=== PATIENT | female | born 1935 | race African-American/Black ===

== ENCOUNTER 2019-05-01 00:07 | Inpatient (IN) | payer OTHER ==
[~2019-05-01] VITALS: Ht 157.5 cm; Wt 108.9 kg
[2019-05-01] VITALS (7 sets, daily range): BP systolic 127–162; BP diastolic 57–76
--- NOTE | ~2019-05-01 | HC ---
[facility] [place] [address] CONSULTATION Name: ELÍAS SMITH Room #: 454-P ADM IN M.R.#: [id number] Admission: 05/01/19 ������������������ Attend Phys: Donn Tate MD Discharge: ������������������ Date of : 39 Report #: [id number] THIS REPORT FOR: //name// CC: Meme Tate DATE OF SERVICE: 05/04/2019 HISTORY OF PRESENT ILLNESS: The patient is an 84-year-old -Maldivian female admitted with increased shortness of breath for approximately 12 hours. Complains of cough. She was noted to have acute on chronic respiratory failure, thought to have probable COPD exacerbation. She does have history of diabetes mellitus type 2. She was diagnosed with community-acquired pneumonia. She does have morbid obesity. We are seeing her in rehabilitation medicine consultation. PAST MEDICAL HISTORY: Includes chronic low back pain, hypertension. She has had prior lumbar surgery, bilateral total knee replacements, diabetes mellitus type 2. MEDICATIONS: Please see the full medication listing. HABITS: Nonsmoker, but exposed to secondhand smoked for over 50 years in-home with . SOCIAL HISTORY: Lives in a house currently and she lives by herself, but her daughter will be staying with her for the short run. There are 2 steps in, she used cane. Apparently, this is a split level. REVIEW OF SYSTEMS: Did not offer any current complaints of chest pain, shortness of breath or abdominal discomfort. PHYSICAL EXAMINATION: GENERAL: An 84-year-old -Maldivian female in no obvious distress. VITAL SIGNS: Last recorded temperature 98, pulse 70, respirations 18, blood pressure 139/60. She is alert, oriented. HEENT: Appeared to be benign. Dentition is fair. NEUROLOGIC: Facies are symmetric. Follows basic commands without difficulty, functional range of motion of both upper extremities with strength grade 4+/5. DTRs are trace to 1. ABDOMEN: She does have evidence of obesity with a pendulous abdomen. EXTREMITIES: Lower extremities, no focal calf swelling, functional range of motion with strength grade 4+/5. She has done well with her transfers and is ambulated 100 feet, standby assistance with a cane. She has gone up 5 stairs standby assistance. ASSESSMENT: An 84-year-old -Maldivian female with the following problems: [address] [address] CONSULTATION Name: ELÍAS SMITH Room #: 454-P [facility] IN M.R.#: [id number] Admission: 05/01/19 ������������������ Attend Phys: Donn Tate MD Discharge: ������������������ Date of : 39 Report #: [id number] 1. Community-acquired pneumonia. 2. Generalized debilitation. She is doing better in this regard. 3. Diabetes mellitus type 2. 4. Hypertension. 5. Morbid obesity. 6. Chronic low back pain. 7. Acute asthma exacerbation. PLAN: The patient is doing quite well with basic transfers, functional mobility issues and going up and down stairs. Agree with physical therapy that she is ready for discharge back to the home setting. ��������������������������������������������� ���������������������������������������� By: ��������������������������������������������� 1116 1411 Dewayne Diaz MD /PMT
[2019-05-01] MEDS ORDERED: ASA81BEC PO (00:32)
[2019-05-01] MEDS ORDERED: SINGULAIR 10 MG10 M1 PO (00:33)
[2019-05-01] MEDS ORDERED: METFORMIN HCL500 MG PO (00:33)
[2019-05-01] MEDS ORDERED: HYDROCHLOROTH12.5 M1 PO (00:33)
[2019-05-01] MEDS ORDERED: CARDIZEM CD240 MG PO (00:34)
[2019-05-01] MEDS ORDERED: PRINIVIL10 MG PO (00:34)
[2019-05-01 02:15] LABS: ANION GAP 10 mmol/L (7-16); BUN 15 mg/dL (7-18); CALCIUM 8.9 mg/dL (8.5-10.1); CHLORIDE 104 mmol/L (98-107); CO2 22 mmol/L (21-32); GLUCOSE 122 mg/dL (74-106); POTASSIUM 4.1 mmol/L (3.5-5.1); SODIUM 136 mmol/L (136-145)
[2019-05-01 02:24] LABS: TROPONIN-I <0.06 ng/mL (<0.06)
[2019-05-01 02:38] LABS: ABSOLUTE NEUTROPHILS 3.5 thou/uL (1.4-8.2); BASOPHILS 0.6 % (0.0-2.0); EOSINOPHILS 5.1 % (0.0-3.0); HEMATOCRIT 34.9 % (37.0-47.0); HEMOGLOBIN 11.2 gm/dL (12.0-15.0); MCH 26.9 pg (26.0-34.0); MCHC 32.2 g/dL (28.0-37.0); MCV 83.7 fL (80.0-100.0); MONOCYTES 8.7 % (1.0-8.0); PLATELET COUNT 228 thou/uL (150-400); POLYS 66.6 % (36.0-66.0); RBC 4.17 mil/uL (4.20-5.00); RDW 14.8 % (10.5-14.5); WBC 5.3 thou/uL (4.0-11.0)
--- NOTE | 2019-05-01 07:31 | EKG ---
[address] [place] [address] ELECTROCARDIOGRAM REPORT Name: ELÍAS SMITH Room #: 454-P ADM IN M.R.#: [id number] ������������������ Admission: 05/01/19 ������������������ Attend Phys: Donn Tate MD Discharge: ������������������ Date of : 39 Report #: [id number] ����������������������������������������������������������������� [id number] THIS REPORT FOR: //name// [facility] ED Test Date: 2019-05-01 Test Time: 00:46:58 Pat Name: ELÍAS SMITH Department: Room: [facility] Gender: F Doughnut Icer: matthew kirby : 1935 Requested By: Reji Rollins Order Number: [id number] MD: Avinash Joshi Measurements Intervals [place] Rate: 79 P: 90 MD: 178 QRS: -25 QRSD: 84 T: 45 QT: 389 QTc: 447 Interpretive Statements Sinus rhythm Borderline left axis deviation No previous ECG available for comparison Electronically Signed On 05-01-2019 7:30:52 CDT by Avinash Joshi [email or web address] ��������������������������������������������� <ELECTRONICALLY SIGNED> ���������������������������������������� By: Avinash Joshi MD, [facility] ��������������������������������������������� 05/01/19 0730 0046 0046 Avinash Joshi MD, FACC /EPI
--- NOTE | 2019-05-01 07:37 | NUR ---
A/O, calm and pleasant; afebrile; nursing practioner visited the patient on arrival; patient asked for breathing treatment, RT notified.
[2019-05-01 11:21] LABS: FOLIC ACID 8.4 ng/mL (8.6-58.9)
--- NOTE | 2019-05-01 14:56 | NUR ---
ASSESSMENT: CM REVIEWED CHART AND MET WITH PATIENT AND HER DAUGHTER AT THE BEDSIDE. PT WAS ADMITTED WITH PNEUMONIA. PT CURRENTLY LIVES IN A HOUSE ALONE BUT STATES HER DAUGHTER IS IN FROM [place] AND WILL BE STAYING THERE UNTIL May. PT REPORTS SHE LIVES IN A SPLIT LEVEL HOME AND HAS TWO SETS OF 6 STEPS WITH HANDRAILS. PT REPORTS USING A CANE AT HOME AND ALSO HAS A ROLLATER WALKER. CM DISCUSSED ROLE. PT REPORTS SHE HAS BEEN TO [facility] IN THE PAST AND HAS HAD HH BUT UNSURE THE AGENCY. PT STATES SHE IS WISHING TO RETURN HOME WITH HH AT DISCHARGE. PT REPORTS NO PREFERENCE OF HH AGENCY. REFERRAL WAS SENT TO [facility]. CHOICE OF VENDOR FORM ON CHART. [facility]:[phone] FAX:[phone]
--- NOTE | 2019-05-01 15:49 | NUR ---
Received awake on bed. Due medications given as prescribed, able to swallow meds w/o difficulty. A+Ox4. On room air. With SL at Left chest- intact, infusing well. On blood sugar monitoring, taken and recorded accordingly; With insulin SS prescribed. Falls risk- falls bundle in place. Visited by relative. Able to pass urine in the toilet, on stand by assist. With consult to Dr Paulson- US called in, pt seen by ELECTRIC CUTTER OPERATOR, to continue Blood sugar monitoring. Vital signs stable.
[2019-05-02 03:09] VITALS: BP 139/54
--- NOTE | 2019-05-02 03:11 | NUR ---
ASSUMED CARE AROUND 1900. AXOX4. NO S/S ACUTE DISTRESS NOTED OR REPORTED AT THIS TIME. WILL CONT TO MONITOR FOR ANY CHANGES IN CONDITION.
[2019-05-02 08:10] VITALS: BP 154/52
[2019-05-02 15:15] VITALS: BP 138/47
[2019-05-02 18:22] VITALS: BP 129/41
--- NOTE | 2019-05-02 18:27 | NUR ---
PT A&OX4, VSS, DENIES PAIN. PATIENT HAS RESTED IN BED AND RECLINER THROUGHOUT DAY. MEDS GIVEN ORDERED, FAMILY AT BEDSIDE. WHEEZING HEARD ACROSS ALL LUNG LOBES, NON PRODUCTIVE COUGH PRESENT, PATIENT WAS UNABLE TO GIVE SPUTUM SAMPLE TODAY. PATIENT CONTINUES ON ROOM AIR, NO SIGNS OF DISTRESS. WILL CONTINUE TO MONITOR.
--- NOTE | 2019-05-03 02:46 | NUR ---
patient aox4 makes needs known. patient is a stand by assist with adl, bed mobility, transfer and toileting. patient had increased wheezing this shift. educated patient to sit up in bed or chair.patient feels better this shift sitting up in bed. patient ambulates with a cane with steady gaits. sputum collected and taken to the lab. patient in bed asleep at this time breathing regular and unlaboured.
[2019-05-03 03:59] VITALS: BP 124/45
[2019-05-03 06:05] LABS: HEMATOCRIT 32.6 % (37.0-47.0); HEMOGLOBIN 10.6 gm/dL (12.0-15.0); MCH 27.2 pg (26.0-34.0); MCHC 32.5 g/dL (28.0-37.0); MCV 83.5 fL (80.0-100.0); RBC 3.9 mil/uL (4.20-5.00); RDW 14.8 % (10.5-14.5); WBC 9.5 thou/uL (4.0-11.0)
[2019-05-03 06:16] LABS: CALCIUM 8.9 mg/dL (8.5-10.1); POTASSIUM 4.5 mmol/L (3.5-5.1)
[2019-05-03 08:00] VITALS: BP 145/60
--- NOTE | 2019-05-03 12:49 | NUR ---
TOWARDS POC PT A/O X4, VSS, AFEBRILE. DENIES PAIN. NO SOA, NO NV. NO CONCERNS VOICED. WILL CONTINUE TO MONITOR.
[2019-05-03 15:00] VITALS: BP 152/70
[2019-05-03 19:56] VITALS: BP 140/49
--- NOTE | 2019-05-03 22:44 | NUR ---
Assumed care at 1845. Pt AOX4. VSS. Gave night time insulin. Denies pain. Still has mild expiratory wheezing. Pt didnt want to be woken up for midnight vitals. No identified needs at the moment. Call light within reach. Will continue to monitor.
[2019-05-04 04:59] VITALS: BP 131/54
[2019-05-04 06:19] LABS: HEMATOCRIT 33.2 % (37.0-47.0); HEMOGLOBIN 10.8 gm/dL (12.0-15.0); MCH 26.7 pg (26.0-34.0); MCHC 32.5 g/dL (28.0-37.0); MCV 82.2 fL (80.0-100.0); RBC 4.04 mil/uL (4.20-5.00); RDW 14.8 % (10.5-14.5); WBC 8.3 thou/uL (4.0-11.0)
[2019-05-04 08:24] VITALS: BP 139/60
[2019-05-04 08:57] VITALS: BP 139/60
--- NOTE | 2019-05-04 13:28 | NUR ---
Assumed pt care this am, with no IV in place. Pt is able to ambulate using her cane and a gait belt with ease and a steady gait. Denies any pain. Faint wheezing has been noted but no signs of distress. Pt had lunch on her recliner is and tolerating her diet well. Seen by Dr. Tate, IV medication converted to oral, POC followed.
[2019-05-04] MEDS ORDERED: PREDNISONE 20 M20 M1 PO (13:51)
[2019-05-04] MEDS ORDERED: IPRAT-ALBUT 0.5-3 ML INH (13:51)
[2019-05-04] MEDS ORDERED: ADULT LOW DOSE81 MG PO (13:51)
[2019-05-04] MEDS ORDERED: ACETAMINOPHEN325 M1 PO (13:51)
[2019-05-04] MEDS ORDERED: PULMICORT0.25 MG/1 INH (13:51)
[2019-05-04] MEDS ORDERED: MUCINEX600 MG PO (13:51)
[2019-05-04] MEDS ORDERED: CEFUROXIME500 MG PO (13:51)
[2019-05-04] MEDS ORDERED: AZITHROMYCIN 2250 MG PO (13:51)
[2019-05-05 22:06] LABS: ADENOVIRUS Negative (Negative); INFLUENZA A Negative (Negative); INFLUENZA B Negative (Negative); METAPNEUMOVIRUS Negative (Negative); PARAINFLUENZA 1 Negative (Negative); PARAINFLUENZA 2 Negative (Negative); PARAINFLUENZA 3 Negative (Negative); RHINOVIRUS Negative (Negative); RSV A Negative (Negative); RSV B Positive (Negative)
== END 2019-05-04 17:52 | disposition home health service (06) | DRG 193 ==
LOC: ER 00:07 → 4W 03:10 → EROBS 03:10 → 4W 04:06
PROVIDERS: Emergency Medicine; Nurse Practitioner Acute Care; ADMIT Internal Medicine
DX: J18.9 Pneumonia, unspecified organism (principal); J96.20 Acute and chronic respiratory failure, unspecified whether with hypoxia or hypercapnia; J44.1 Chronic obstructive pulmonary disease with (acute) exacerbation; Z68.41 Body mass index [BMI] 40.0-44.9, adult; J45.901 Unspecified asthma with (acute) exacerbation; G89.29 Other chronic pain; J45.909 Unspecified asthma, uncomplicated; M54.5 Low back pain; I10 Essential (primary) hypertension; Z96.653 Presence of artificial knee joint, bilateral; E11.9 Type 2 diabetes mellitus without complications; R53.81 Other malaise; E66.01 Morbid (severe) obesity due to excess calories; F17.210 Nicotine dependence, cigarettes, uncomplicated; Z79.82 Long term (current) use of aspirin; Z90.711 Acquired absence of uterus with remaining cervical stump; Z79.84 Long term (current) use of oral hypoglycemic drugs; Z79.899 Other long term (current) drug therapy; Z88.6 Allergy status to analgesic agent
CPT/HCPCS: 10040